=== PATIENT | female | born 1970 | race Caucasian/White ===

== ENCOUNTER 2017-10-11 06:07 | Day surgery (SDC) | payer OTHER ==
[~2017-10-11] VITALS: Ht 162.6 cm; Wt 66.0 kg
[~2017-10-11 06:07] MED LIST: ADVA250A INH; ALBU17I INH; ALPR-138 PO; ESTR.3 PO; PARO10TA PO; PREV30CA36 PO; SYNT112T PO
[2017-10-11] MEDS ORDERED: IOHEXOL 350 MG/ML 50 ML BTL (for Cath Lab) OTHER ONE (06:08)
[2017-10-11 06:43] VITALS: BP 144/88; PULSE 74; RESP 18; TEMP 98.2; O2SAT 95
[2017-10-11] MEDS ORDERED: ADVA230A INH (06:54)
[2017-10-11] MEDS ORDERED: OMEP20TA93 PO (06:54)
[2017-10-11] MEDS ORDERED: LEVO112T2 PO (06:54)
[2017-10-11] MEDS ORDERED: VITA2000 PO (06:54)
[2017-10-11] MEDS ORDERED: PROT40TA PO (06:54)
[2017-10-11] MEDS ORDERED: IPRASOL INH (06:54)
[2017-10-11] MEDS ORDERED: VENTAER INH (06:54)
[2017-10-11] MEDS ORDERED: ALBU0.08 NEB (06:54)
[2017-10-11] MEDS ORDERED: UMEC1INH INH (06:54)
[2017-10-11] MEDS ORDERED: ZOLP5TAB3 PO (06:54)
[2017-10-11] MEDS ORDERED: HEPARIN-NS/PF FLUSH BAG 2,000 ML IV FLUSH ONE (08:13)
[2017-10-11] MEDS ORDERED: MIDAZOLAM HCL 2 MG/2 ML VIAL ONE (08:13)
--- NOTE | 2017-10-11 08:58 | CATHPROC ---
[employer] HIS Report Study Information Study Number Admission Scheduled Start Study Start [id number] Oct 11 2017 6:07AM 10/11/2017 Oct 11 2017 8:14AM [place] [facility] Cardiac Catheterization Admit Source Facility Department Other [facility] - [facility] Physician and Clinical Staff Initial Antony Laguna Rn Cardiac Rehab Paulo Cavanaugh,JO Rn Cardiac Rehab Davon Cesar,JO Recorder Mata Chaney,RT(R) Scrub Suad ZhengRT(R) Procedures Performed Procedure Location (Site) Vessel Name Coronary Angiograms LCA Left Coronary Coronary Angiograms RCA Right Coronary L Heart Cath Equipment Time Necktie Maker Description Size Mfg Part Number Used/Scraped TRANSDUCER, TRUWAVE [id number] 08:17 ROD YOUNG * Used W/STOCKCOCK *[id number] *[id number] *[id number] *[id number] 08:17 MEDLINE INDUSTRIES PACK, CCL CUSTOM * Used *[id number] 08:17 MEDLINE PACER PEN, SKIN DUAL W/ RULER * Used *[id number] 08:17 [employer]re[employer]ot MEDICAL SHEATH, FR6.5 PRELUDE 11CM FR 6.5 038ACT Used *[id number] 08:17 [employer]ot MEDICAL WIRE, 3MMJ .035 180CM 180CM Used *[id number] 08:17 NAMIC MANIFOLD, 4 PORT * Used *[id number] 08:17 NYCOMED OMNIPAQUE, 350 MG, 100ML 100ML [id number] Used 08:43 NYCOMED OMNIPAQUE, 350 MG, 50ML 50ML [id number] Used [id number] 08:17 REINOSO MEDICAL BLANKET,WARM AIR CCL * Used *[id number] History: Current Medications Medication Dosage/Unit Route Frequency Last Date/Time Taken Prilosec Albuterol History: Allergies Allergy Reaction No Known Allergies Pain Medication History: Risk Factors Family History of Hypertension Dyslipidemia Previous MA Previous Heart Failure Premature CAD No No No No No Prior Valve Prior PCI Prior CABG Surgery No No No Cerebrovascular Peripheral Artery Chronic Lung On Dialysis Diabetes Disease Disease Disease No No No Yes No History: Symptoms/Diagnosis Selection Items Chest pain History: Stress Tests Stress or Imaging Studies Performed No History: Other Disease Selection Items COPD Gerd History: Other Current Smoker Method Quit Packs a Day Years Used Pack Years No Cigarettes 1 Years Ago 1 30 30 Labs Hgb (g/dl) Hct (%) RBC (MIL/MM3) WBC (l/cumm) Platelets (thousands) 11.60-17.00 35.00-51.00 4.00-5.90 4.00-11.00 150.00-450.00 12.6 37.9 4.2 5.4 232 Glucose (mg/dl) BUN (mg/dl) Creatinine (mg/dl) BUN:Creatinine (1:x) 74.00-106.00 7.00-18.00 0.50-1.30 10.00-20.00 100 14 0.7 20 Na (meq/l) K (meq/l) Cl (meq/l) CO2 (mmol/L) Ca (mg/dl) 136.00-145.00 3.50-5.10 98.00-107.00 21.00-32.00 8.50-10.10 144 4.4 103 24 9 PT (sec) INR (PTT:PT) 9.80-11.60 0.90-1.10 10.4 1 CPK-MB (ng/ML) 0.50-3.60 Not Drawn Medication Medication Total Dose (Bolus/Oral) Medication Total Dosage/Unit 1% XYLOCAINE 20 mL VERSED 2 mg Medications (Bolus/Oral) Medication Time Given Dosage/Unit Administered By Reason VERSED 10/11/2017 8:32:03 AM 2 mg aDvon Cesar 2 mg VERSED given in lab by Davon Cesar, JO in Right Antecubital via Peripheral IV. Ordered by Antony Starks. 1% XYLOCAINE 10/11/2017 8:32:19 AM 20 mL Antony Mike 20 mL 1% XYLOCAINE given in lab by Antony Mike in Right Groin via Subcutaneous. Ordered by Antony Vincent ms. Medication (Drip) Medication Time Given Dosage/Unit Concentration/Unit Diluent (ml) Solution IV Solutions 10/11/2017 8:14:52 AM 0 mL (IV) 500 NaCl .9 IV Solutions given in lab by Davon Cesar, JO in Right Antecubital via Peripheral IV. Pump/Drip Cam w = 20 ml/hr using NaCl .9. Ordered by Antony Mike. Initial Case Assessment Cardiovascular HR Rhythm NIBP Chest Pain 69 Sinus 130/72 0 Edema Present Skin color Skin None Normal Warm Dry Circulatory - Right Pulses Dorsalis Pedis Femoral 2 2 Scale (0,1,2,3,4,d) Circulatory - Left Pulses Dorsalis Pedis Femoral 2 2 Scale (0,1,2,3,4,d) Neurological State Oriented to time-place- Alert Moves all extremities person Respiration - General Respiration Rate SpO2 (%) O2 (lpm) (B/min) 20 100 0 Final Case Assessment Cardiovascular HR Rhythm NIBP Chest Pain 71 Sinus 130/73 0 Edema Present Skin color Skin None Normal Warm Dry Circulatory - Right Pulses Dorsalis Pedis Femoral 2 2 Scale (0,1,2,3,4,d) Circulatory - Left Pulses Dorsalis Pedis Femoral 2 2 Scale (0,1,2,3,4,d) Neurological State Oriented to time-place- Alert Moves all extremities person Respiration - General Respiration Rate SpO2 (%) O2 (lpm) (B/min) 17 96 0 Chronological Log Time Study Chronological Log 8:06:17 Patient arrived via Bed. 8:14:32 Patient Name, D.O.B, / Armband Verified By R.N. 8:14:35 Consent signed by the physician and the patient and verified by the [facility] staff. 8:14:36 Pre-op and post- op instructions given; patient acknowledges understanding of instructions. 8:14:37 Verbal Stimulation=2 Physical Stimulation=2 Airway=2 Respiration=2 TOTAL=8. (0=absent, 1=li mited, 2=present) 8:14:39 Presedation assessment performed by [facility] RN. 8:14:45 Patient has been NPO for More than 6Hrs. 8:14:45 Skin Breakdown- none per patient. 8:14:47 Patient Warmer Placed on the Table. 8:14:49 Estrada Prominences Protected 8:14:51 A # 20 IV was noted in the Antecubital (right). Grade = 0 IV Solutions given in lab by Davon Cesar, JO in Right Antecubital via Peripheral IV. Pump/Dr ip Flow = 20 ml/hr using 8:14:52 NaCl .9. Ordered by Antony Mike. 8:14:52 History and physical on the chart or being dictated. Assessment: Initial Case, HR=69 BPM, Rhythm=Sinus, QEGM=739/72 mmhg, Chest Pain=0, Edema=None, Color=Normal, Skin = Warm, Dry Right Pulses: Guille Ped=2, Femoral=2 8:14:53 Left Pulses: Guille Ped=2, Femoral=2 Neurological: State=Alert, Ox3, MOTT Respiration: Resp=20 B/min, RgE8=794 %, O2=0 lpm Vitals capture started with the following parameters, Patient=Adult, Interval=5 min, Initial Pre hkoch=817 mmHg, 8:14:55 Deflation Rate=5 mmHg, Cuff placed on Right Ankle Vitals capture started with the following parameters, Patient=Adult, Interval=5 min, Initial Pre bwyxj=217 mmHg, 8:16:18 Deflation Rate=5 mmHg, Cuff placed on Right Ankle 8:17:18 Reference ECG taken 8:17:26 HR=69 bpm, YGFW=123/72 mmhg, FvG3=401.0 %, Resp=20 B/min, Pain=0, Merry=10, Vogt=2 8:18:45 Bilateral groins prepped with 2% chlorhexidine, and draped after a 3 minute waiting time. 8:21:55 HR=79 bpm, IXCW=158/69 mmhg, UrE7=413.0 %, Resp=22 B/min, Pain=0, Merry=10, Vogt=2 8:22:34 MD paged 8:22:59 MD arrived. 8:26:45 Pressure channel 1 zeroed. 8:26:54 HR=78 bpm, SFTW=843/85 mmhg, PuP8=333.0 %, Resp=16 B/min, Pain=0, Merry=10, Vogt=2 Time Out. Correct patient, correct procedure, correct physician, power injector not loaded with contrast with surgical 8:31:22 team present. Time Out Concurred by MD and individual staff in procedure. 8:31:53 HR=77 bpm, IKLL=156/80 mmhg, QxY6=318.0 %, Resp=13 B/min, Pain=0, Merry=10, Vogt=2 8:32:03 2 mg VERSED given in lab by Davon Cesar, JO in Right Antecubital via Peripheral IV. Order ed by Antony Mike. 8:32:11 Case Start 8:32:19 20 mL 1% XYLOCAINE given in lab by Antony Mike in Right Groin via Subcutaneous. Ordered by Antony Mike. 8:36:01 Access site was Right Femoral Artery. 8:36:17 A SHEATH, FR6.5 PRELUDE 11CM FR 6.5 was advanced into the Fem Art (right) using the Percutan eous technique. A JL 4.0 INFINITI CATHETER FR 6 was advanced over a wire. OMNIPAQUE, 350 MG, 100ML 100ML was use d for 8:36:54 injections. 8:37:31 HR=74 bpm, FNYA=327/87 mmhg, SpO2=98.0 %, Resp=26 B/min, Pain=0, Merry=10, Vogt=2 8:38:27 The LCA was injected and visualized at various angles. OMNIPAQUE, 350 MG, 100ML 100ML used. 8:40:17 Catheter was removed A JR 4.0 INFINITI CATHETER FR 6 was advanced over a wire. OMNIPAQUE, 350 MG, 100ML 100ML was use d for 8:40:39 injections. 8:41:36 The RCA was injected and visualized at various angles. OMNIPAQUE, 350 MG, 100ML 100ML used. 8:41:56 Catheter was removed 8:41:57 HR=75 bpm, JWBA=341/73 mmhg, SpO2=93.0 %, Resp=21 B/min, Pain=0, Merry=10, Vogt=2 A PIGTAIL STR INFINITI CATHETER FR 6 was advanced over a wire. OMNIPAQUE, 350 MG, 50ML 50ML was used for 8:42:35 injections. Recorded Pressure: LV, HR=76, Condition=Condition 1 8:43:47 (Left Ventricle) LV 140/10/16 Recorded Pressure: LV, Ao, HR=79, Condition=Condition 1 8:44:20 (Left Ventricle) LV 109/6/4, (Aorta) Ao 147/82/109 8:44:29 Catheter was removed 8:45:05 Case End 8:46:00 No case complications noted. 8:46:01 Cine recording checked. 8:46:56 HR=71 bpm, SOSU=116/73 mmhg, SpO2=96.0 %, Resp=17 B/min, Pain=0, Merry=10, Vogt=2 8:51:24 A Left Heart Cath was performed. 8:51:26 Sterile dressing applied to site Assessment: Final Case, HR=71 BPM, Rhythm=Sinus, DFOV=467/73 mmhg, Chest Pain=0, Edema=None, Color=Normal, Skin = Warm, Dry Right Pulses: Guille Ped=2, Femoral=2 8:51:29 Left Pulses: Guille Ped=2, Femoral=2 Neurological: State=Alert, Ox3, MOTT Respiration: Resp=17 B/min, SpO2=96 %, O2=0 lpm 8:52:00 Vitals capture stopped. 8:52:16 Bedside Report will be given. 8:53:15 Patient moved to stretcher End Study - Contrast Media Used In Study Contrast Total Opened (mL) Total Used (mL) Total Wasted (mL) Omnipaque 200 50 150 End Study - Maximum Contrast Load Max Contrast Load (mL) 470.8 End Study - Radiation Exposure Fluoro Time (minutes) 2.7 End Study - Patient Disposition Complications Transferred To Interventional Outcome No Outpatient Bed No attempt made
[2017-10-11] MEDS ORDERED: ATROPINE SULFATE 1 MG/ML VIAL IV PUSH PRN (09:00)
[2017-10-11] MEDS ORDERED: BACITRACIN OINT 0.9 GM PKT TOP ONE (09:00)
[2017-10-11] MEDS ORDERED: LORazepam 2 MG/ML VIAL IV PUSH PRN (09:00)
[2017-10-11] MEDS ORDERED: SODIUM CHLOR 0.9% 250 ML INJ 250 ML IV PRN (09:00)
[2017-10-11] MEDS ORDERED: ONDANSETRON HCL 4 MG/2 ML VIAL IV PUSH PRN (09:00)
[2017-10-11] MEDS ORDERED: LIDOCAINE HCL 1% 50 ML VIAL INFIL PRN (09:00)
[2017-10-11] MEDS ORDERED: MISC INFORMATION XX ONE (09:00)
--- NOTE | 2017-10-11 09:12 | MA ---
cc: Antony Mike MD 10/11/2017 The patient was prepped and draped in the usual fashion. A 6 sheath was inserted percutaneously in the right femoral artery. Coronary angiography was done with [facility] preformed catheters. The left ventricle was cannulated with the pigtail catheter. RESULTS: Aortic pressure was 147/82. There was no gradient across the aortic valve. Left ventricular end-diastolic pressure was 6. CORONARY ANGIOGRAPHY: Left main coronary artery was extremely short and almost nonexistent. No significant stenoses were seen. The left circumflex artery was normal throughout its course. The left anterior descending artery was short and did not reach the left ventricular apex. No significant stenoses were seen. The right coronary artery was anatomically dominant. It was essentially normal throughout its course. CONCLUSIONS: 1. Normal coronary arteries. 2. Normal hemodynamics. Antony Mike MD DLW/TI , 08:54 AM , 09:10 AM
--- NOTE | 2017-10-11 13:46 | EKG ---
Date Performed: 10/11/2017 Time Performed: 07:29:28 PTAGE: 47 years EKG: Sinus rhythm with 1st degree A-V block. Abnormal ECG NO PREVIOUS TRACING DOCTOR: Cresencio Rojas Interpretating Date/Time 10/11/2017 13:45:10
== END 2017-10-11 14:09 | disposition home or self-care (01) ==
LOC: HDIC 06:07 → HDOC 06:07
PROVIDERS: ATTEND Internal Medicine Cardiovascular Disease
DX: R07.9 Chest pain, unspecified (principal); I44.1 Atrioventricular block, second degree; J44.9 Chronic obstructive pulmonary disease, unspecified; Z95.0 Presence of cardiac pacemaker; Z87.891 Personal history of nicotine dependence
CPT/HCPCS: 93005; 93458; 99152; C1769; C1893; J1644; J2250; Q9967